=== PATIENT | female | born 1965 | race Caucasian/White ===

== ENCOUNTER 2017-07-25 08:06 | Emergency (ER) | payer OTHER ==
[~2017-07-25] VITALS: Ht 167.6 cm; Wt 80.0 kg
[2017-07-25 08:12] VITALS: Ht 167.6 cm; Wt 80.0 kg
[2017-07-25 09:25] LABS: BASOPHIL % 0.2 % (0-2); PLATELET COUNT 171 x10^3mcL (130-400)
[2017-07-25 09:28] LABS: CALCIUM 8.4 mg/dL (8.5-10.1); CARBON DIOXIDE 28.6 mmol/L (21-32); CHLORIDE SERUM 104 mmol/L (98-107); CREATININE SERUM 0.8 mg/dL (0.6-1.0); GFR1 > 60 mL/min; GLUCOSE SERUM 110 mg/dL (74-106); POTASSIUM SERUM 4.1 mmol/L (3.5-5.1); SODIUM SERUM 141 mmol/L (136-145)
[2017-07-25 09:34] LABS: ALKALINE PHOSPHATASE 80 U/L (46-116); ALT/SGPT 19 U/L (14-59); AST/SGOT 11 U/L (15-37); CHOLESTEROL 172 mg/dL (<200); PHOSPHOROUS 3.7 mg/dL (2.5-4.9); TOTAL PROTEIN, SERUM 6.7 g/dL (6.4-8.2); URIC ACID 5.2 mg/dL (2.6-6.0)
[2017-07-25 09:36] LABS: ALBUMIN 3.3 g/dL (3.4-5.0); HDL CHOLESTEROL 65 mg/dL (40-60)
[2017-07-25 10:01] LABS: RED CELL DISTRIBUTION WIDTH 18.9 % (11.5-14.5)
[2017-07-25 10:27] LABS: BILIRUBIN TOTAL 1.5 mg/dL (0.20-1.00)
[2017-07-25 10:41] VITALS: BP 129/84
== END 2017-07-25 10:41 | disposition home or self-care (01) ==
LOC: ED 08:06
PROVIDERS: Emergency Medicine
DX: J06.9 Acute upper respiratory infection, unspecified (principal); I10 Essential (primary) hypertension; I25.2 Old myocardial infarction; Z95.0 Presence of cardiac pacemaker; Z88.1 Allergy status to other antibiotic agents; Z86.79 Personal history of other diseases of the circulatory system
CPT/HCPCS: 36415; 83880; Q0092

== ENCOUNTER 2019-06-30 21:47 | Inpatient (IN) | payer MEDICARE, OTHER ==
[~2019-06-30] VITALS: Ht 167.6 cm; Wt 81.2 kg
[~2019-06-30 21:47] MED LIST: ASPIRIN ADULT L81 M5 PO; ATORVASTATIN CA40 M1 PO; CARVEDILOL12.5 M1 PO; FUROSEMIDE40 MG PO; LASIX20 MG PO; LEVOTHYROXIN0.025 M2 PO; LEVOTHYROXINE0.05 M2 PO; PLA75 PO; SOTALOL HCL80 MG PO
[2019-06-30 21:55] VITALS: Ht 167.6 cm; Wt 81.2 kg
[2019-06-30] MEDS ORDERED: ATORVASTATIN CA80 M1 PO (23:16)
[2019-06-30] MEDS ORDERED: ENTRESTO1 TA2 PO (23:16)
[2019-06-30] MEDS ORDERED: CARVEDILOL ER40 MG PO (23:17)
[2019-06-30] MEDS ORDERED: ALDACTONE25 MG PO (23:18)
[2019-06-30 23:27] LABS: BASOPHIL % 0.5 % (0-2); PLATELET COUNT 112 x10^3mcL (130-400); RED CELL DISTRIBUTION WIDTH 14.4 % (11.5-14.5)
[2019-06-30 23:34] LABS: CALCIUM 8.6 mg/dL (8.5-10.1); CARBON DIOXIDE 27.4 mmol/L (21-32); CHLORIDE SERUM 104 mmol/L (98-107); CREATININE SERUM 0.9 mg/dL (0.6-1.0); GFR1 > 60 mL/min; GLUCOSE SERUM 150 mg/dL (74-106); POTASSIUM SERUM 3.5 mmol/L (3.5-5.1); SODIUM SERUM 139 mmol/L (136-145)
[2019-06-30 23:39] LABS: ALKALINE PHOSPHATASE 96 U/L (46-116); ALT/SGPT 20 U/L (14-59); AST/SGOT 24 U/L (15-37); BILIRUBIN TOTAL 0.6 mg/dL (0.20-1.00); TOTAL PROTEIN, SERUM 6.3 g/dL (6.4-8.2)
[2019-06-30 23:42] LABS: ALBUMIN 3.2 g/dL (3.4-5.0)
[2019-07-01 01:18] VITALS: BP 120/81
[2019-07-01 01:28] LABS: MAGNESIUM 1.8 mg/dL (1.8-2.4); PHOSPHOROUS 2.5 mg/dL (2.5-4.9)
[2019-07-01 01:29] LABS: CHOLESTEROL/HDL RATIO 4.4
[2019-07-01 01:39] LABS: FREE THYROXINE INDEX 2.4 ug/dL (1.4-4.5); T4(THYROXINE) 7.3 ug/dL (4.7-13.3)
[2019-07-01 02:32] LABS: T3 TOTAL 1.04 ng/mL
[2019-07-01 06:03] VITALS: BP 115/72
[2019-07-01 06:16] LABS: BASOPHIL % 0.3 % (0-2)
[2019-07-01 06:28] LABS: PLATELET COUNT 104 x10^3mcL (130-400); RED CELL DISTRIBUTION WIDTH 14.9 % (11.5-14.5)
[2019-07-01 06:39] LABS: CALCIUM 8.2 mg/dL (8.5-10.1); CARBON DIOXIDE 26.9 mmol/L (21-32); CHLORIDE SERUM 106 mmol/L (98-107); CREATININE SERUM 0.8 mg/dL (0.6-1.0); GFR1 > 60 mL/min; GLUCOSE SERUM 122 mg/dL (74-106); PHOSPHOROUS 3.6 mg/dL (2.5-4.9); POTASSIUM SERUM 3.5 mmol/L (3.5-5.1); SODIUM SERUM 140 mmol/L (136-145)
[2019-07-01 09:20] VITALS: BP 106/72
[2019-07-01 13:05] VITALS: BP 95/62
[2019-07-01 18:57] VITALS: BP 93/56
[2019-07-01 20:44] VITALS: BP 101/61
[2019-07-02 05:10] VITALS: BP 97/60
[2019-07-02 07:40] LABS: BASOPHIL % 0.1 % (0-2)
[2019-07-02 07:43] LABS: PLATELET COUNT 90 x10^3mcL (130-400); RED CELL DISTRIBUTION WIDTH 14.8 % (11.5-14.5)
[2019-07-02 07:54] LABS: CARBON DIOXIDE 25.2 mmol/L (21-32); CHLORIDE SERUM 106 mmol/L (98-107); CREATININE SERUM 0.7 mg/dL (0.6-1.0); GFR1 > 60 mL/min; GLUCOSE SERUM 104 mg/dL (74-106); POTASSIUM SERUM 3.8 mmol/L (3.5-5.1); SODIUM SERUM 139 mmol/L (136-145)
[2019-07-02 08:39] VITALS: BP 99/65
[2019-07-02 12:54] VITALS: BP 99/64
[2019-07-02 16:24] VITALS: BP 92/57
[2019-07-02 18:50] VITALS: BP 98/62
[2019-07-02 19:26] VITALS: BP 101/63
[2019-07-03 06:10] VITALS: BP 104/70
[2019-07-03 08:06] VITALS: BP 98/65
[2019-07-03] MEDS ORDERED: FUROSEMIDE40 MG PO (11:00)
[2019-07-03] MEDS ORDERED: COR200 PO ×2 (11:01→12:24)
[2019-07-03 13:41] VITALS: BP 100/62
== END 2019-07-03 15:00 | disposition home or self-care (01) | DRG 309 ==
LOC: ED 21:47 → DU 23:59
PROVIDERS: Emergency Medicine; ADMIT Family Medicine
DX: I47.2 Ventricular tachycardia (principal); I42.8 Other cardiomyopathies; I50.22 Chronic systolic (congestive) heart failure; E44.0 Moderate protein-calorie malnutrition; I11.0 Hypertensive heart disease with heart failure; I25.10 Atherosclerotic heart disease of native coronary artery without angina pectoris; E11.65 Type 2 diabetes mellitus with hyperglycemia; D69.59 Other secondary thrombocytopenia; E78.5 Hyperlipidemia, unspecified; I25.2 Old myocardial infarction; Z79.82 Long term (current) use of aspirin; Z79.84 Long term (current) use of oral hypoglycemic drugs; Z91.14 Patient's other noncompliance with medication regimen; Z68.34 Body mass index [BMI] 34.0-34.9, adult; Z95.5 Presence of coronary angioplasty implant and graft; Z95.810 Presence of automatic (implantable) cardiac defibrillator; Z86.718 Personal history of other venous thrombosis and embolism
CPT/HCPCS: 82962; 83880; 84439; G0378; J1644; J7030; Q0092